=== PATIENT | male | born 1950 | race Caucasian/White ===

== ENCOUNTER 2016-12-16 11:23 | Emergency (ER) | payer MEDICARE, SELFPAY ==
--- NOTE | 2016-12-16 11:38 | EDM.PDOC ---
ED HPI GENERAL MEDICAL PROBLEM - General Stated Complaint: STROKE Time Seen by Provider: 12/16/16 11:23 Source of Information: Reports: Patient, EMS History Limitations: Reports: Altered Mental Status - History of Present Illness INITIAL COMMENTS - FREE TEXT/NARRATIVE: 66 y.o.w.m with an extensive cardiac history, was found unresponsive in the ditch, in his truck at 11.30 am, found by a friend. His friend drove him to the ED by PC. On arrival, Pt did respond to verbal stimuli, Air way was open, pupils were equal, tongue was deviating to the left, pt a gaze to the right, left upper extremity was flaccid, pt was able to flex his left big to, unable to lift his left lower above the horizontal, ( off the stretcher). R upper and r lower extr. had nl reflexes and muscle strength, no pronator drift. BS was 125, BP was 175/101, pulse was 86 BPM on arrival. INDER showed Sinus rhythm with a rate of 86. Pt does not take any meds. He was advised to take ASA/Plavix by his physician, however, pt refused to take daily meds (as per ). Last seen ambulating normal was at 4.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 Onset: Today Onset Date: 12/16/16 Onset Time: 04:30 Duration: Hour(s):, Constant Location: Reports: Head - Related Data Allergies Allergy/AdvReac Type Severity Reaction Status Date / Time No Known Allergies Allergy Verified 03/22/14 20:09 Home Meds: Home Meds NK [No Known Home Meds] 12/16/16 [History] Social & Family History - Tobacco Use Smoking Status *Q: Never Smoker Second Hand Smoke Exposure: No - Alcohol Use Days Per Week of Alcohol Use: 7 Number of Drinks Per Day: 6 Total Drinks Per Week: 42 - Recreational Drug Use Recreational Drug Use: No ED ROS GENERAL - Review of Systems Review Of Systems: Unable To Obtain ED EXAM, NEURO - Physical Exam Exam: See Below Exam Limited By: Other (left sided hemiparesis) General Appearance: Alert, WD/WN, Mild Distress Eye Exam: Right Eye: EOMI (Gaze to the right), Bilateral Eye: Other (pupils equal) Ears: Normal External Exam Nose: Normal Inspection Throat/Mouth: Other (GAG reflex present, tongue is deviating to the left) Head Exam: Atraumatic, Normocephalic Neck: Normal Inspection, Supple, Non-Tender, Full Range of Motion Respiratory/Chest: No Respiratory Distress, Lungs Clear, Normal Breath Sounds Cardiovascular: Normal Peripheral Pulses, Regular Rate, Rhythm, No Edema, No Gallop GI/Abdominal: Normal Bowel Sounds, Soft, Non-Tender, No Organomegaly (Male) Exam: No Hernia Rectal (Males) Exam: Deferred Neurological: Alert, Abnormal Gait (unable to ambulate), Abnormal Finger to Nose , Abnormal Motor, Difficulty Walking (unable to walk) DTR: 2+: Patella (R), Patella (L) Back Exam: Normal Inspection, Full Range of Motion Extremities: Normal Inspection, Non-Tender, No Pedal Edema, Limited Range of Motion (left extr. due to wakness) Psychiatric: Normal Affect, Normal Mood Skin Exam: Warm, Dry, Intact, Normal Color, No Rash EKG INTERPRETATION EKG Date: 12/16/16 Time: 11:30 Rhythm: NSR Rate (Beats/Min): 87 [place]: Normal P-Wave: Present QRS: Normal ST-T: Other (T wave inversions inf leads) QT: Normal Course - Vital Signs Text/Narrative:: 66 y.o.w.m with an extensive cardiac history, was found unresponsive in the ditch, in his truck at 11.30 am, found by a friend. His friend drove him to the ED by PC. On arrival, Pt did respond to verbal stimuli, Air way was open, pupils were equal, tongue was deviating to the left, pt a gaze to the right, left upper extremity was flaccid, pt was able to flex his left big to, unable to lift his left lower above the horizontal, ( off the stretcher). R upper and r lower extr. had nl reflexes and muscle strength, no pronator drift. BS was 125, BP was 175/101, pulse was 86 BPM on arrival. INDER showed Sinus rhythm with a rate of 86. Pt does not take any meds. He was advised to take ASA/Plavix by his physician, however, pt refused to take daily meds (as per ). Last seen ambulating normal was at 4.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 pt was neurologically and cardial monitored. PE: Left sided hemiparesis with gaze to the right, tongue deviated to the left. ( r IC area?) Imaging: Gen atrophy, small vessel ischemic changes. old lacunar infarct left basal ganglion, official report is pending labs: WBC was 10.5, . HGB 18 and HKT 55 were elevated. Na was 129 INR and PTT nl. BS 125 UA is pending Impression: CVA with left sided hemiparesis, H/O CAD, HTN Tx: O2 by NC, Labetolol, NS, (11.55 am)Consultation: Dr. Leigh, Neurologist. Transfer to [facility] for Brain angio, no meds, ASA of heparin at this time. Consultation: Dr. Woodard: EDMD, accepted the patient for transfer Reexam: Pt was monitored, BP was 155/87 after Labetolol, Plan: Transfer to the ED [facility] by air. Last Recorded V/S: Last Vital Signs Temp 35.9 C 12/16/16 12:20 Pulse 80 12/16/16 12:20 Resp 20 12/16/16 12:20 BP 161/97 H 12/16/16 12:20 Pulse Ox 98 12/16/16 12:20 - Orders/Labs/Meds Orders: Active Orders 24 hr Category Date Time Status Levine Catheter Insertion [Insert Urinary Catheter] [OM. Care 12/16/16 11:45 Ordered PC] Q24H Urinary Catheter Assessment [RC] QSHIFT Care 12/16/16 11:35 Active Head wo Cont [CT] Stat Exams 12/16/16 11:31 Taken EKG 12 Lead [EK] Routine Ther 12/16/16 11:31 Ordered Labs: Laboratory Tests 12/16/16 12/16/16 12/16/16 Range/Units 11:28 11:30 11:30 WBC 10.3 (4.5-12.0) X10-3/uL RBC 6.14 H (4.30-5.75) x10(6)uL Hgb 18.5 H (11.5-15.5) g/dL Hct 55.2 H (30.0-51.3) % MCV 90.0 (80-96) fL MCH 30.2 (27.7-33.6) pg MCHC 33.6 (32.2-35.4) g/dL RDW 13.1 (11.5-15.5) % Plt Count 167 (125-369) X10(3)uL MPV 8.5 (7.4-10.4) fL Add Manual Diff Yes Neutrophils % (Manual) 86 H (46-82) % Band Neutrophils % 1 (0-6) % Lymphocytes % (Manual) 10 L (13-37) % Monocytes % (Manual) 3 L (4-12) % PT 10.9 (8.7-11.1) INR 1.08 (0.89-1.13) Sodium (135-145) mmol/L Potassium (3.5-5.3) mmol/L Chloride (100-110) mmol/L Carbon Dioxide (23-29) mmol/L BUN (8-23) mg/dL Creatinine (0.6-1.3) mg/dL Est Cr Clr Drug Dosing Estimated GFR (MDRD) (>60) BUN/Creatinine Ratio (9-20) Glucose (80-116) mg/dL POC Glucose 125 H (80-116) mg/dL Calcium (8.6-10.2) mg/dL Creatine Kinase (60-160) IU/L Troponin I (0.02-0.06) NG/ML B-Natriuretic Peptide (0-100) pg/mL Urine Color (YELLOW) Urine Appearance (CLEAR) Urine pH (5.0-6.5) Ur Specific [place] (1.010-1.025) Urine Protein (NEGATIVE) mg/dL Urine Glucose (UA) (NEGATIVE) mg/dL Urine Ketones (NEGATIVE) mg/dL Urine Occult Blood (NEGATIVE) Urine Nitrite (NEGATIVE) Urine Bilirubin (NEGATIVE) Urine Urobilinogen (NEGATIVE) mg/dL Ur Leukocyte Esterase (NEGATIVE) Urine RBC (0) Urine WBC (0) Ur Squamous Epith Cells (NS,R,O) Ur Renal Epithelial Cell (NS) Urine Bacteria (NS) Urine Mucus (NS) 12/16/16 12/16/16 12/16/16 Range/Units 11:30 11:30 11:30 WBC (4.5-12.0) X10-3/uL RBC (4.30-5.75) x10(6)uL Hgb (11.5-15.5) g/dL Hct (30.0-51.3) % MCV (80-96) fL MCH (27.7-33.6) pg MCHC (32.2-35.4) g/dL RDW (11.5-15.5) % Plt Count (125-369) X10(3)uL MPV (7.4-10.4) fL Add Manual Diff Neutrophils % (Manual) (46-82) % Band Neutrophils % (0-6) % Lymphocytes % (Manual) (13-37) % Monocytes % (Manual) (4-12) % PT (8.7-11.1) INR (0.89-1.13) Sodium 129 L (135-145) mmol/L Potassium 4.9 (3.5-5.3) mmol/L Chloride 99 L D (100-110) mmol/L Carbon Dioxide 20 L (23-29) mmol/L BUN 17 (8-23) mg/dL Creatinine 1.0 (0.6-1.3) mg/dL Est Cr Clr Drug Dosing TNP Estimated GFR (MDRD) > 60 (>60) BUN/Creatinine Ratio 17.0 (9-20) Glucose 168 H (80-116) mg/dL POC Glucose (80-116) mg/dL Calcium 9.6 (8.6-10.2) mg/dL Creatine Kinase 103 (60-160) IU/L Troponin I (0.02-0.06) NG/ML B-Natriuretic Peptide 273 H (0-100) pg/mL Urine Color (YELLOW) Urine Appearance (CLEAR) Urine pH (5.0-6.5) Ur Specific [place] (1.010-1.025) Urine Protein (NEGATIVE) mg/dL Urine Glucose (UA) (NEGATIVE) mg/dL Urine Ketones (NEGATIVE) mg/dL Urine Occult Blood (NEGATIVE) Urine Nitrite (NEGATIVE) Urine Bilirubin (NEGATIVE) Urine Urobilinogen (NEGATIVE) mg/dL Ur Leukocyte Esterase (NEGATIVE) Urine RBC (0) Urine WBC (0) Ur Squamous Epith Cells (NS,R,O) Ur Renal Epithelial Cell (NS) Urine Bacteria (NS) Urine Mucus (NS) 12/16/16 12/16/16 Range/Units 11:30 12:10 WBC (4.5-12.0) X10-3/uL RBC (4.30-5.75) x10(6)uL Hgb (11.5-15.5) g/dL Hct (30.0-51.3) % MCV (80-96) fL MCH (27.7-33.6) pg MCHC (32.2-35.4) g/dL RDW (11.5-15.5) % Plt Count (125-369) X10(3)uL MPV (7.4-10.4) fL Add Manual Diff Neutrophils % (Manual) (46-82) % Band Neutrophils % (0-6) % Lymphocytes % (Manual) (13-37) % Monocytes % (Manual) (4-12) % PT (8.7-11.1) INR (0.89-1.13) Sodium (135-145) mmol/L Potassium (3.5-5.3) mmol/L Chloride (100-110) mmol/L Carbon Dioxide (23-29) mmol/L BUN (8-23) mg/dL Creatinine (0.6-1.3) mg/dL Est Cr Clr Drug Dosing Estimated GFR (MDRD) (>60) BUN/Creatinine Ratio (9-20) Glucose (80-116) mg/dL POC Glucose (80-116) mg/dL Calcium (8.6-10.2) mg/dL Creatine Kinase (60-160) IU/L Troponin I < 0.01 L (0.02-0.06) NG/ML B-Natriuretic Peptide (0-100) pg/mL Urine Color Yellow (YELLOW) Urine Appearance Clear (CLEAR) Urine pH 5.0 (5.0-6.5) Ur Specific [place] 1.020 (1.010-1.025) Urine Protein Negative (NEGATIVE) mg/dL Urine Glucose (UA) Normal (NEGATIVE) mg/dL Urine Ketones 15 H (NEGATIVE) mg/dL Urine Occult Blood Negative (NEGATIVE) Urine Nitrite Negative (NEGATIVE) Urine Bilirubin Negative (NEGATIVE) Urine Urobilinogen Normal (NEGATIVE) mg/dL Ur Leukocyte Esterase Negative (NEGATIVE) Urine RBC 0-5 (0) Urine WBC 0-5 (0) Ur Squamous Epith Cells Rare (NS,R,O) Ur Renal Epithelial Cell Few H (NS) Urine Bacteria Rare H (NS) Urine Mucus Many H (NS) Meds: Medications Discontinued Medications Generic Name Dose Route Start Last Admin Trade Name Freq PRN Reason Stop Dose Admin Sodium Chloride 1,000 mls @ 125 mls/hr 12/16/16 11:45 12/16/16 11:45 Normal Saline IV 125 mls/hr ASDIRECTED JONO Administration Labetalol HCl 10 mg 12/16/16 11:50 12/16/16 12:05 Normodyne IVPUSH 12/16/16 11:51 10 mg ONETIME ONE Administration Protocol Departure - Departure Time of Disposition: 12:20 Disposition: DC/Tfer to [facility] Condition: Fair Clinical Impression: CVA (cerebral vascular accident) Qualifiers: CVA mechanism: occlusion Precerebral and cerebral artery: middle cerebral artery Laterality of affected vessel: right Qualified Code(s): I63.511 - Cerebral infarction due to unspecified occlusion or stenosis of right middle cerebral artery - Discharge Information Referrals: Joseph Tang MD [Primary Care Provider] - Forms: ED Department Discharge - My Orders Last 24 Hours: My Active Orders 12/16/16 11:31 Head wo Cont [CT] Stat EKG 12 Lead [EK] Routine 12/16/16 11:35 Urinary Catheter Assessment [RC] QSHIFT 12/16/16 11:45 Levine Catheter Insertion [Insert Urinary Catheter] [OM.PC] Q24H - Assessment/Plan Last 24 Hours: My Active Orders 12/16/16 11:31 Head wo Cont [CT] Stat EKG 12 Lead [EK] Routine 12/16/16 11:35 Urinary Catheter Assessment [RC] QSHIFT 12/16/16 11:45 Levine Catheter Insertion [Insert Urinary Catheter] [OM.PC] Q24H
[2016-12-16] MEDS ORDERED: Sodium Chloride 0.9% 1,000 ML IV SCH (11:45)
[2016-12-16] MEDS ORDERED: Labetalol 20 MG/4 ML Syringe IVPUSH ONE (11:50)
[2016-12-16 13:15] VITALS: BP 161/97
== END 2016-12-16 12:35 | disposition critical access hospital (66) ==
LOC: FB.ED 11:23
PROC: 0T2BX0Z Change Drainage Device in Bladder, External Approach (ICD-10-PCS; principal; 2016-12-16)
DX: I63.511 Cerebral infarction due to unspecified occlusion or stenosis of right middle cerebral artery (principal); I69.354 Hemiplegia and hemiparesis following cerebral infarction affecting left non-dominant side
CPT/HCPCS: 36415; 51702; 70450; 80048; 81001; 82550; 82962; 83880; 84484; 85025; 85610; 93005; 96361; 96374; 99285; J7040